=== PATIENT | male | born 1995 ===

== ENCOUNTER 2020-11-22 14:21 | Emergency (ER) | payer SELFPAY ==
[~2020-11-22 14:21] MED LIST: EPINEPHrine 1 MG/10 ML SYRINGE ONE
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
== END 2020-11-22 15:00 ==
LOC: EDBD → ED 14:21
DX: S01.93XA Puncture wound without foreign body of unspecified part of head, initial encounter (principal); S41.131A Puncture wound without foreign body of right upper arm, initial encounter; S31.23XA Puncture wound without foreign body of penis, initial encounter; S31.139A Puncture wound of abdominal wall without foreign body, unspecified quadrant without penetration into peritoneal cavity, initial encounter; I46.9 Cardiac arrest, cause unspecified; X94.0XXA Assault by shotgun, initial encounter; Y93.89 Activity, other specified; Y92.89 Other specified places as the place of occurrence of the external cause; Y99.8 Other external cause status
CPT/HCPCS: 31500; 92950; 99285; J0171